=== PATIENT | male | born 1945 | race Caucasian/White ===

== ENCOUNTER 2023-02-02 09:35 | Emergency (ER) | payer OTHER ==
[~2023-02-02] VITALS: Ht 190.5 cm; Wt 117.9 kg
[2023-02-02 09:44] VITALS: BP_SYST 134; PULSE 64; RESP 18; TEMP 97.6; O2SAT 95
--- NOTE | 2023-02-02 09:44 | NUR ---
ASSUMED CARE OF PALE PT WITH YELLOW TINT TO HIS SKIN WHO PRESENTED TO THE ED FROM . PT IS S/O TUMOR REMOVAL OF THE COLON, GALL BLADDER REMOVAL, AND PARTIAL REMOVAL OF THE PANCREAS 10 DAYS AGO. PT'S VERTICAL INCISION IS CLEAN AND DRY AND OPEN TO AIR AND HAS NO S/S OF INFECTION. MEDICS REPORT THAT PT HAD ONE EPISODE OF VOMITING UP DARK RED BLOOD AT 0830 APPROXIMATELY.
[2023-02-02] MEDS ORDERED: EZET-85 (10:24)
[2023-02-02] MEDS ORDERED: AMLO5TAB4 PO (10:24)
[2023-02-02] MEDS ORDERED: IRBE300T40 PO (10:24)
[2023-02-02] MEDS ORDERED: AMIO100T4 PO (10:24)
[2023-02-02] MEDS ORDERED: OXYIR5 PO (10:24)
[2023-02-02] MEDS ORDERED: APIX5TAB4 PO (10:24)
[2023-02-02] MEDS ORDERED: CARV12.548 PO (10:24)
[2023-02-02] MEDS ORDERED: PANT20TA2 PO (10:24)
[2023-02-02] MEDS ORDERED: DULO40CA2 PO (10:24)
[2023-02-02] MEDS ORDERED: ROSU20TA32 PO (10:24)
[2023-02-02] MEDS ORDERED: DITXL5 PO (10:24)
[2023-02-02 10:34] LABS: BASOPHILS # (AUTO) 0.1 K/uL (0.0-0.2); BASOPHILS % (AUTO) 0.5 % (0.0-2.0); EOSINOPHILS # (AUTO) 0.2 K/uL (0.0-0.4); EOSINOPHILS % (AUTO) 1.2 % (0.0-4.0); HEMOGLOBIN 7.9 g/dL (14.0-18.0); LYMPHOCYTES # (AUTO) 0.5 K/uL (1.0-5.5); LYMPHOCYTES % (AUTO) 2.5 % (20.5-51.5); MEAN CORPUSCULAR HEMOGLOBIN 27 pg (27-31); MEAN CORPUSCULAR HGB CONC 32 % (32-36); MEAN CORPUSCULAR VOLUME 85 fL (79.0-98.0); MONOCYTES # (AUTO) 1.9 K/uL (0.0-1.0); MONOCYTES % (AUTO) 9.2 % (1.7-9.3); NEUTROPHILS # (AUTO) 17.5 K/uL (1.8-7.7); NEUTROPHILS % (AUTO) 86.6 % (40.0-70.0); PLATELET COUNT (AUTO) 294 K/uL (130-430); RED BLOOD CELL COUNT(AUTO) 2.95 MIL/uL (4.2-6.2); RED CELL DISTRIBUTION WIDTH 18.7 % (9.0-15.0); WHITE BLOOD COUNT (AUTO) 20.2 K/uL (4.8-10.8)
[2023-02-02 10:42] LABS: ANION GAP 8 (5-15); CALCIUM 8.3 mg/dL (8.4-11.0); CHLORIDE 102 mmol/L (98-107); CREATININE 0.97 mg/dL (0.55-1.30); GLUCOSE 125 mg/dL (74-106); UREA NITROGEN, BLOOD 15 mg/dL (8-21)
[2023-02-02 10:46] LABS: INR 1.1 (0.80-1.20); PROTHROMBIN TIME 11.7 SECS (9.5-12.5)
[2023-02-02 11:00] LABS: ALANINE AMINOTRANSFERASE 830 U/L (12-78); ALBUMIN 2.2 g/dL (3.4-4.8); AMYLASE 115 U/L (0-100); ASPARTATE AMINOTRANSFERASE 878 U/L (10-37); LIPASE 1197 U/L (73-393); TOTAL BILIRUBIN 3.8 mg/dL (0.0-1.0)
[2023-02-02] MEDS ORDERED: MORPHINE 2 MG/ML INJ. SYRINGE IVP ONE (11:00)
--- NOTE | 2023-02-02 11:15 | NUR ---
A RESULT OF PT MOANING IN BED AND REPORTING SEVERE PT; PT MEDICATED VIA IV WITH MORPHINE. PT REMAINS ON 2L VIA NC AND VSS.
--- NOTE | 2023-02-02 12:00 | NUR ---
AFTER RECEIVING MORPHINE PT HAD INTERMITTENT EPISODES OF DOSE OFF THE FIRST 45 MINS FOLLOWING ADMINISTRATION BUT IS NOW BECOMING RESTLESS AND AGITATED. PT THROWING OFF CLOSED AND DISCONNECTING HIS MONITOR. PT IS ONLY A&OX 1 AT THIS TIME. VSS.
[2023-02-02] MEDS ORDERED: FUROSEMIDE 20 MG/2 ML VIAL IVP ONE (12:30)
[2023-02-02 12:39] LABS: BASOPHILS # (AUTO) 0.1 K/uL (0.0-0.2); BASOPHILS % (AUTO) 0.4 % (0.0-2.0); EOSINOPHILS # (AUTO) 0.1 K/uL (0.0-0.4); EOSINOPHILS % (AUTO) 0.4 % (0.0-4.0); HEMATOCRIT 26.7 % (36-54); HEMOGLOBIN 8.3 g/dL (14.0-18.0); LYMPHOCYTES # (AUTO) 0.5 K/uL (1.0-5.5); LYMPHOCYTES % (AUTO) 2.2 % (20.5-51.5); MEAN CORPUSCULAR HEMOGLOBIN 27 pg (27-31); MEAN CORPUSCULAR HGB CONC 31 % (32-36); MEAN CORPUSCULAR VOLUME 86 fL (79.0-98.0); MONOCYTES # (AUTO) 1.8 K/uL (0.0-1.0); MONOCYTES % (AUTO) 7.8 % (1.7-9.3); NEUTROPHILS # (AUTO) 21.1 K/uL (1.8-7.7); NEUTROPHILS % (AUTO) 89.2 % (40.0-70.0); PLATELET COUNT (AUTO) 271 K/uL (130-430); RED BLOOD CELL COUNT(AUTO) 3.12 MIL/uL (4.2-6.2); RED CELL DISTRIBUTION WIDTH 18.9 % (9.0-15.0); WHITE BLOOD COUNT (AUTO) 23.6 K/uL (4.8-10.8)
[2023-02-02] MEDS ORDERED: LORazepam 2 MG/ML VIAL IVP ONE (12:45)
--- NOTE | 2023-02-02 13:00 | NUR ---
PT IS NOW CALM AND RESTING WITH EYES CLOSED AND STABLE VS ON 2L VIA NC AFTER RECEIVING ATIVAN. PT NO LONGER TRYING TO GET OUT OF BED AND RIPPING OFF HIS TUBING AND CLOTHES.
--- NOTE | 2023-02-02 13:12 | NUR ---
PT REMAINS ALTERED AND IS UNABLE TO CONSENT FOR BLOOD. 2 RN TELEPHONE CONSENT WAS OBTAINED FROM DEVIN VERAS; PT'S SON PHONE NUMBER #[phone].
--- NOTE | 2023-02-02 14:00 | NUR ---
PT IS RESTING WITH EYES CLOSED AND IS AROUSABLE BUT LETHARGIC AND ALERT ONLY TO SELF INTERMITTENTLY AFTER RECEIVING ATIVAN. 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 PT IS PENDING 1 PRBC TRANSFUSION.
--- NOTE | 2023-02-02 15:07 | NUR ---
AFTER TIPPLE CHECKS WITH SECOND RN AND ALL VERIFICATIONS COMPLETED PER POLICY, PT 1ST UNIT OF PRBC'S WAS STARTED. CONSENT WAS SIGNED BY SON DEVIN AND 2 RN'S PRIOR TO ADMINISTRATION. ORDER RECEIVED FROM MD LANCASTER THAT PICC LINE OKAY TO USE AND BOTH LUMEN OF THE MAYRA PICC ARE PATENT. PRBC'S ADMINISTERED THROUGH ONE LUMEN OF THE PICC LINE. FAMILY EDUCATED ON S/S OF TRANSFUSION REACTION AND PT WILL BE CLOSELY MONITORED. PER FAMILY PT HAS RECEIVED MULTIPLE TRANSFUSIONS IN THE PAST AND NEVER HAD A TRANSFUSION REACTION.
[2023-02-02] MEDS ORDERED: FLUMAZENIL 0.1 MG/ML IVP ONE (15:15)
[2023-02-02] MEDS ORDERED: PIPERACILLIN/TAZO 3.375 GM in NS 50 ML IV ONE (15:15)
[2023-02-02] MEDS ORDERED: PIPERACILLIN/TAZOBACTAM 3.375 GM/VIAL (ZOSYN) IV ONE (15:27)
--- NOTE | 2023-02-02 16:51 | NUR ---
TRANSFER INFO [facility] Damari DIAZ [facility] RM: [id number] REPORT #: [phone] [id number] SPOKE TO JOSE CARLOS WILL CALL FOR TRANSPORT TO ACCEPTED FACILITY
--- NOTE | 2023-02-02 17:45 | NUR ---
PT'S 1 UNIT OF PRBC'S IS COMPLETE AND PATIENT REMAINS FREE OF A TRANSFUSION REACTION. PT HAS A MILD IMPROVEMENT IN PALE SKIN. PT ALSO HAD A LUCID AND APPROPRIATE MOMENT WITH FAMILY AT BEDSIDE BUT OTHERWISE REMAINS LETHARGIC. VS REMAIN STABLE.
--- NOTE | 2023-02-02 18:00 | NUR ---
PER MD LANCASTER PT WILL NOT NEED A FOLLOW UP CBC BEFORE TRANSFER. [facility] TRANSPORT TO TAKE PT TO [facility] IS EXPECTED TO ARRIVE AROUND 1930. NO CHANGE IN MENTATION. VSS. FAMILY AT BEDSIDE.
--- NOTE | 2023-02-02 19:30 | NUR ---
RECIEVED PATIENT IN SHIFT REPORT
--- NOTE | 2023-02-02 19:50 | NUR ---
REPORT CALLED TO [facility], LORRI PHELPS GOING TO [facility] BED [id number]. PT REMAINS INTERMITTENTLY HAVING LUCID MOMENTS WITH FAMILY BUT REMAINS LETHARGIC AND PALE. PT DOESN'T APPEAR TO HAVE ANY PAIN AND IS FREE OF ANY RESTLESS MOVEMENTS.
--- NOTE | 2023-02-02 20:05 | NUR ---
REPORT GIVEN TO [facility] TRANSPORT NURSE AT THIS TIME, VITALS ARE STABLE 120/61, 76HR, 99% ON 2 LITERS NASAL CANNULA, 22 R
[2023-02-02 20:19] VITALS: BP_SYST 108; PULSE 77; RESP 25; TEMP 97.5; O2SAT 98
== END 2023-02-02 20:05 | disposition short-term general hospital (02) ==
LOC: SED 09:35
DX: R19.06 Epigastric swelling, mass or lump (principal); K92.0 Hematemesis; Z79.899 Other long term (current) drug therapy; Z20.822 Contact with and (suspected) exposure to COVID-19
CPT/HCPCS: 99285; 36430; 74176; 96365; 96375; 71045; 96367; 87426; 80053; 82140; 82150; 83880; 83690; 85025; 85610; 85730; 86886; 86900; 86901; 87040; 84484; 86920; 36415; 93005; 76376; 83605; P9021; J3490; J1940; J1956; J2060; J2543; J2270

== ENCOUNTER 2023-03-16 03:29 | Emergency (ER) | payer MEDICARE, OTHER ==
[~2023-03-16] VITALS: Ht 188 cm; Wt 83.9 kg
[~2023-03-16 03:29] MED LIST: AMIO100T4 PO; AMLO5TAB4 PO; APIX5TAB4 PO; CARV12.548 PO; DITXL5 PO; DULO40CA2 PO; EZET-85; IRBE300T40 PO; OXYIR5 PO; PANT20TA2 PO; ROSU20TA32 PO
[2023-03-16 03:46] VITALS: BP_SYST 141; PULSE 75; RESP 17; TEMP 96.5; O2SAT 98
[2023-03-16 04:15] LABS: BASOPHILS # (AUTO) 0.1 K/uL (0.0-0.2); BASOPHILS % (AUTO) 0.4 % (0.0-2.0); EOSINOPHILS # (AUTO) 0.4 K/uL (0.0-0.4); EOSINOPHILS % (AUTO) 3.8 % (0.0-4.0); HEMATOCRIT 30.3 % (36-54); HEMOGLOBIN 9.8 g/dL (14.0-18.0); LYMPHOCYTES % (AUTO) 8.6 % (20.5-51.5); MEAN CORPUSCULAR HEMOGLOBIN 28 pg (27-31); MEAN CORPUSCULAR HGB CONC 32 % (32-36); MEAN CORPUSCULAR VOLUME 86 fL (79.0-98.0); NEUTROPHILS # (AUTO) 8.8 K/uL (1.8-7.7); NEUTROPHILS % (AUTO) 78.2 % (40.0-70.0); PLATELET COUNT (AUTO) 237 K/uL (130-430); RED BLOOD CELL COUNT(AUTO) 3.51 MIL/uL (4.2-6.2); RED CELL DISTRIBUTION WIDTH 16.8 % (9.0-15.0); WHITE BLOOD COUNT (AUTO) 11.2 K/uL (4.8-10.8)
[2023-03-16 04:27] LABS: ANION GAP 8 (5-15); CALCIUM 8.4 mg/dL (8.4-11.0); CARBON DIOXIDE 30 mmol/L (23-29); CHLORIDE 104 mmol/L (98-107); CREATININE 0.92 mg/dL (0.55-1.30); GLUCOSE 123 mg/dL (74-106); SODIUM SERUM 142 mmol/L (136-145); UREA NITROGEN, BLOOD 14 mg/dL (8-21)
[2023-03-16 04:33] LABS: ALANINE AMINOTRANSFERASE 34 U/L (12-78); ALBUMIN 2.4 g/dL (3.4-4.8); ASPARTATE AMINOTRANSFERASE 30 U/L (10-37); LIPASE 5 U/L (73-393); TOTAL BILIRUBIN 0.6 mg/dL (0.0-1.0); TOTAL PROTEIN, SERUM 6.2 g/dL (6.4-8.3)
[2023-03-16] MEDS ORDERED: POTASSIUM CHLORIDE 20 MEQ TAB.PRT.SR PO ONE (05:15)
[2023-03-16] MEDS ORDERED: TAMSULOSIN HCL 0.4 MG CAP PO ONE (06:00)
[2023-03-16] MEDS ORDERED: CEPH-548 PO (06:09)
[2023-03-16] MEDS ORDERED: MILK OF MAGNESIA 30 ML UDC PO ONE (07:30)
[2023-03-16] MEDS ORDERED: TAMSULOSIN HCL 0.4 MG CAP PO SCH (09:00)
[2023-03-16 11:21] VITALS: BP_SYST 141; PULSE 75; RESP 17; TEMP 96.5; O2SAT 98
== END 2023-03-16 08:00 | disposition home or self-care (01) ==
LOC: SED 03:29
DX: R53.1 Weakness (principal); D64.9 Anemia, unspecified; E87.6 Hypokalemia; Z79.899 Other long term (current) drug therapy
CPT/HCPCS: 36415; 71045; 80053; 81002; 83690; 84484; 85025; 93005; 99285

== ENCOUNTER 2023-03-18 20:29 | Emergency (ER) | payer OTHER, MEDICARE ==
[~2023-03-18] VITALS: Ht 193 cm; Wt 96.6 kg
[~2023-03-18 20:29] MED LIST changes: +CEPH-548 PO
[2023-03-18 20:36] VITALS: BP_SYST 115; PULSE 70; RESP 19; TEMP 99; O2SAT 95
[2023-03-18 22:05] LABS: BASOPHILS % (AUTO) 0.5 % (0.0-2.0); EOSINOPHILS # (AUTO) 0.1 K/uL (0.0-0.4); EOSINOPHILS % (AUTO) 2.1 % (0.0-4.0); HEMATOCRIT 29.6 % (36-54); HEMOGLOBIN 9.8 g/dL (14.0-18.0); LYMPHOCYTES # (AUTO) 0.4 K/uL (1.0-5.5); LYMPHOCYTES % (AUTO) 5.6 % (20.5-51.5); MEAN CORPUSCULAR HEMOGLOBIN 29 pg (27-31); MEAN CORPUSCULAR HGB CONC 33 % (32-36); MEAN CORPUSCULAR VOLUME 87 fL (79.0-98.0); MONOCYTES # (AUTO) 0.8 K/uL (0.0-1.0); MONOCYTES % (AUTO) 13.4 % (1.7-9.3); NEUTROPHILS % (AUTO) 78.4 % (40.0-70.0); PLATELET COUNT (AUTO) 197 K/uL (130-430); WHITE BLOOD COUNT (AUTO) 6.3 K/uL (4.8-10.8)
[2023-03-18 22:20] LABS: INR 1.1 (0.80-1.20)
[2023-03-18 22:29] LABS: ALANINE AMINOTRANSFERASE 27 U/L (12-78); ALBUMIN 2.5 g/dL (3.4-4.8); ANION GAP 9 (5-15); ASPARTATE AMINOTRANSFERASE 31 U/L (10-37); CALCIUM 8.4 mg/dL (8.4-11.0); CARBON DIOXIDE 29 mmol/L (23-29); CHLORIDE 101 mmol/L (98-107); CREATININE 0.85 mg/dL (0.55-1.30); GLUCOSE 127 mg/dL (74-106); SODIUM SERUM 139 mmol/L (136-145); TOTAL PROTEIN, SERUM 6.5 g/dL (6.4-8.3); UREA NITROGEN, BLOOD 13 mg/dL (8-21)
[2023-03-18] MEDS ORDERED: NACL 0.9% 2,000 ML IV ONE (22:30)
[2023-03-18] MEDS ORDERED: PIPERACILLIN/TAZO 3.375 GM in NS 50 ML IV ONE (22:30)
[2023-03-18 22:38] LABS: POTASSIUM 2.9 mmol/L (3.5-5.1)
[2023-03-18] MEDS ORDERED: PIPERACILLIN/TAZOBACTAM 3.375 GM/VIAL (ZOSYN) IV ONE (22:58)
[2023-03-18 23:07] LABS: INFLUENZA TYPE A negative (NEGATIVE); INFLUENZA TYPE B NEGATIVE (NEGATIVE)
[2023-03-19] MEDS ORDERED: NIRM1TAB PO (00:33)
[2023-03-19] MEDS ORDERED: POTASSIUM CHLORIDE 20 MEQ/PKT PACKET PO ONE (00:45)
[2023-03-19] MEDS ORDERED: POTASSIUM CHLORIDE 20 MEQ/PKT PACKET ONE (00:59)
[2023-03-19 03:01] VITALS: BP_SYST 154; PULSE 62; RESP 16; TEMP 101.5; O2SAT 96
== END 2023-03-19 03:01 | disposition home or self-care (01) ==
LOC: SED 20:29
DX: U07.1 COVID-19 (principal); T85.590A Other mechanical complication of bile duct prosthesis, initial encounter; R50.9 Fever, unspecified; R05.9 Cough, unspecified; Z79.899 Other long term (current) drug therapy
CPT/HCPCS: 99291; 96365; 71045; 87426; 80053; 85025; 85610; 85730; 87040; 84484; 36415; 93005; 83605; 87804 ×2; J2543; J7030 ×2